=== PATIENT | female | born 1965 | race Caucasian/White ===

== ENCOUNTER 2019-01-10 13:01 | Outpatient (CLI) | payer OTHER | END 2019-01-10 15:20 | disposition home or self-care (01) | LOC: LAB 13:01 | DX: D51.3 Other dietary vitamin B12 deficiency anemia (principal); E06.3 Autoimmune thyroiditis; Z80.3 Family history of malignant neoplasm of breast ==

== ENCOUNTER 2023-12-20 08:00 | Outpatient (CLI) | payer OTHER | END 2023-12-20 08:11 | disposition home or self-care (01) | LOC: SONOGRAMA 08:00 | PROVIDERS: ATTEND Obstetrics & Gynecology Gynecology | DX: N84.0 Polyp of corpus uteri (principal); N85.00 Endometrial hyperplasia, unspecified ==